=== PATIENT | male | born 1970 | race Caucasian/White ===

== ENCOUNTER 2020-12-17 17:30 | Emergency (ER) | payer SELFPAY ==
[~2020-12-17] VITALS: Ht 175.3 cm; Wt 92.0 kg
[2020-12-17] MEDS ORDERED: LIDOCAINE HCL/EPINEPHRINE 1%-EPI 1:100,000 20 ML VIAL INFIL ONE (18:00)
[2020-12-17] MEDS ORDERED: TETANUS, DIPHTHERIA, PERTUSSIS VAC/PF 0.5ML (>7YR OLD) IM ONE (18:00)
[2020-12-17] MEDS ORDERED: ACETAMINOPHEN WITH CODEINE 300/30MG TABLET PO ONE (18:00)
[2020-12-17] MEDS ORDERED: BACITRACIN ZINC OINT UDPKT TOP ONE (18:00)
[2020-12-17] MEDS ORDERED: IBUP-2029 MT (18:52)
[2020-12-17 19:05] VITALS: BP 137/82
== END 2020-12-17 19:07 | disposition home or self-care (01) ==
LOC: ER 17:30
DX: S81.811A Laceration without foreign body, right lower leg, initial encounter (principal); Z13.9 Encounter for screening, unspecified; X58.XXXA Exposure to other specified factors, initial encounter; Y93.89 Activity, other specified; Y92.89 Other specified places as the place of occurrence of the external cause; Y99.8 Other external cause status
CPT/HCPCS: 12001; 73590; 90471; 90715; 99283; J3490

== ENCOUNTER 2020-12-27 10:45 | Emergency (ER) | payer SELFPAY ==
[~2020-12-27] VITALS: Ht 172.7 cm; Wt 90.0 kg
[~2020-12-27 10:45] MED LIST: IBUP-2029 MT
[2020-12-27 12:46] VITALS: BP 150/78
== END 2020-12-27 12:45 | disposition home or self-care (01) ==
LOC: ER 10:45
DX: Z48.02 Encounter for removal of sutures (principal)
CPT/HCPCS: 99281